=== PATIENT | male | born 1930 | race Caucasian/White ===

== ENCOUNTER 2016-11-23 19:30 | Emergency (ER) | payer MEDICARE, OTHER ==
[~2016-11-23] VITALS: Ht 188 cm; Wt 108.9 kg
[~2016-11-23 19:30] MED LIST: BYSTOLIC2.5 MG PO; COLACE100 MG PO; DITROPAN XL5 MG PO; FISH OIL1 GM PO; HALFPRIN81 MG PO; KLOR-CON M1010 MEQ PO; LASIX40 MG PO; LASIX80 MG PO; LEVAQUIN500 MG PO; NORCO 325-5 MG1 TAB PO; TYLENOL325 MG PO; VITAMIN D31000 UNI1 PO
== END 2016-11-23 20:37 | disposition short-term general hospital (02) ==
LOC: ER 19:30
PROC: 0T2BX0Z Change Drainage Device in Bladder, External Approach (ICD-10-PCS; principal; 2016-11-23)
DX: R33.9 Retention of urine, unspecified (principal); Z79.82 Long term (current) use of aspirin; Z79.899 Other long term (current) drug therapy